=== PATIENT | male | born 1965 | race Caucasian/White ===

== ENCOUNTER → 2017-07-10 | Day surgery (SDC) | payer OTHER ==
[~2017-07-10] MED LIST: BUPIVACAINE HCL PF 0.25% 30 ML VIAL ONE; LACTATED RINGER'S 1000 ML INJ 1,000 ML ONE; LIDOCAINE HCL 1% PF 5 ML AMPULE ONE; MEPERIDINE HCL 25 MG/ML VIAL ONE; MIDAZOLAM HCL 2 MG/2 ML VIAL ONE; MORPHINE SULFATE 4 MG/ML INJ ONE; NEOMYCIN/POLYMYXIN/BACITRACIN OINT 15 GM TUBE ONE; ONDANSETRON HCL 4 MG/2 ML VIAL IV PUSH ONE; PROPOFOL 200 MG/20 ML AMP IV ONE; ceFAZolin INJ 1,000 MG VIAL ONE
--- NOTE | 2017-07-10 17:29 | TN ---
cc: YUNIEL ROBLES M.D. DATE OF SURGERY: 07/10/2017 PREOPERATIVE DIAGNOSIS: Right spermatocele and (ICD - 10 code N43.40) POSTOPERATIVE DIAGNOSIS Right spermatocele and (ICD - 10 code N43.40) PROCEDURE: Right spermatocele ectopy (CPT code 43870) INDICATIONS Mr. Baird is a 51-year-old gentleman with recurrent right spermatocele who presents now for definitive treatment. The findings are patient had a approximately 3 to 4 cm spermatocele at the head of the epididymis. No additional cysts were identified. There was some scarring of the tunica from previous procedure. PROCEDURE IN DETAIL Procedure was as follows procedure well as risks and benefits were explained to the patient. Informed consent was obtained the patient was taken major operative theater where he was placed in supine position. The patient was identified as well as the operative site. [facility] time-out was performed in standard fashion. At this time general anesthetic and prophylactic intravenous antibiotics consisting of Ancef 1 gram was administered. After adequate anesthetic his genitalia and groin were prepped and draped usual sterile fashion. At this time 1% lidocaine plain and 0.25% Marcaine plain were injected over the area and the right mid hemiscrotum transversely after previously being marked with a sterile skin marker. At this time using 11 blade scalpel the skin, subcutaneous tissue and skin were incised and then electrocautery was then used to dissect down to the tunica. At this time the testicle, epididymis and the spermatocele were delivered into the wound and a sharp dissection of the spermatocele was performed using a combination of tenotomy scissors and the electrocautery. The spermatocele was dissected away from the epididymis and then suture ligated with 3-0 chromic suture. At what appeared to be the communication site and electrocautery was then used to fulgurate around this area to ensure that there is no additional openings with the epididymis were still patent. At this time some of the tunica was approximated to cover the epididymis. At this time meticulous hemostasis was achieved using electrocautery and the testicle was placed back into the scrotum. Care was taken to make sure that there was appropriate orientation. There was no twisting of kinking of the cord. At this time water was used to irrigate the wound and then the dartos fascia was closed with a running 3-0 chromic suture and the skin edges were then approximated using vertical mattress suture of 3-0 Vicryl. Polysporin ointment and scrotal fluffs and athletic supporter was then placed at the end of the case. The patient tolerated the procedure well, was well, emerged from anesthetic without difficulty and transferred to the recovery in stable condition to be discharged home when criteria is met. There are no obvious complications. The spermatocele sac was sent at the request of the patient for final pathological confirmation. MD JAVIER Moore/[facility] /5:08 PM /5:18 PM
== END | disposition home or self-care (01) ==
LOC: ESDC 11:49
PROVIDERS: ATTEND Urology
DX: N43.41 Spermatocele of epididymis, single (principal); Z79.84 Long term (current) use of oral hypoglycemic drugs; E11.9 Type 2 diabetes mellitus without complications
CPT/HCPCS: 00920; 54840; 82948; 88304; J0690; J2175; J2250; J2270; J2405; J3010; J7120